=== PATIENT | male | born 1935 | race Caucasian/White ===

== ENCOUNTER 2017-07-30 18:46 | Emergency (ER) | payer MEDICARE ==
--- NOTE | 2017-07-30 20:34 | RAD ---
PORTABLE CHEST: 07/30/2017 PROVIDED CLINICAL HISTORY: Chest pain status post injury. COMPARISON: 04/20/2017 FINDINGS: The cardiac and mediastinal silhouette are unchanged in appearance. Median sternotomy changes and a left subclavian cardiac pacing device are again seen. There is no focal consolidation, pleural fluid , or pneumothorax. The bony thorax appears grossly intact, as visualized. IMPRESSION: No evidence for an acute cardiopulmonary process. POS: [facility]
== END 2017-07-30 19:54 | disposition home or self-care (01) ==
LOC: MADERS 18:46
DX: S22.32XA Fracture of one rib, left side, initial encounter for closed fracture (principal); E11.51 Type 2 diabetes mellitus with diabetic peripheral angiopathy without gangrene; E11.40 Type 2 diabetes mellitus with diabetic neuropathy, unspecified; I25.10 Atherosclerotic heart disease of native coronary artery without angina pectoris; I48.91 Unspecified atrial fibrillation; I10 Essential (primary) hypertension; Z85.46 Personal history of malignant neoplasm of prostate; Z79.899 Other long term (current) drug therapy; W01.198A Fall on same level from slipping, tripping and stumbling with subsequent striking against other object, initial encounter
CPT/HCPCS: 71045

== ENCOUNTER 2018-01-14 10:14 | Emergency (ER) | payer MEDICARE ==
[2018-01-14] MEDS ORDERED: HYDROcodone/Acetaminophen 5/325 mg Tablet ONE (10:57)
[2018-01-14] MEDS ORDERED: predniSONE 20 MG TAB ONE (10:58)
== END 2018-01-14 11:00 | disposition home or self-care (01) ==
LOC: MADERS 10:14
DX: M54.41 Lumbago with sciatica, right side (principal); I25.10 Atherosclerotic heart disease of native coronary artery without angina pectoris; I48.91 Unspecified atrial fibrillation; E11.9 Type 2 diabetes mellitus without complications; I10 Essential (primary) hypertension; Z79.899 Other long term (current) drug therapy
CPT/HCPCS: J7506

== ENCOUNTER 2018-04-06 16:47 | Inpatient (IN) | payer MEDICARE ==
[2018-04-06] MEDS ORDERED: Guaifenesin DM 100-10/5 ML UDCUP PO PRN (21:13)
[2018-04-06] MEDS ORDERED: Acetaminophen 325 MG TAB PO PRN (21:13)
[2018-04-06] MEDS ORDERED: Bisacodyl 5 MG TAB PO PRN (21:13)
[2018-04-06] MEDS ORDERED: Ondansetron ODT 4 MG TAB PO PRN (21:13)
[2018-04-07 05:33] VITALS: BMI 27.8
[2018-04-07] MEDS: cycloSPORINE 0.05% Ophthalmic Droperette EA EYE SCH ×2 (08:58→21:00)
[2018-04-07] MEDS ORDERED: Famotidine 20 MG TAB PO SCH ×2 (09:00)
[2018-04-07] MEDS ORDERED: Prevnar 13-Val Conj/PF 0.5 ML SYRINGE IM ONE (09:00)
[2018-04-07] MEDS: Scopolamine 1.5 mg/72 hour Patch TOP SCH (13:51)
[2018-04-07] MEDS ORDERED: Ondansetron PF 4 MG/2 ML Vial IVP PRN (14:15)
[2018-04-07] MEDS ORDERED: Acetaminophen 650 MG Suppository PR PRN (14:20)
--- NOTE | 2018-04-07 18:58 | HP ---
REASON FOR ADMISSION: Terminal ill care in [facility]. HISTORY OF PRESENT ILLNESS AND HOSPITAL COURSE: Mr. Alexandra is an 83-year-old male, recently admitted from [facility] in [place] for altered mental status. On further evaluation, the patient was found to have an acute hypoxemic respiratory failure due to pneumonia and flu. He was admitted subsequently for respiratory support, Tamiflu and IV antibiotics. The patient initially responded to the IV antibiotic and Tamiflu, but subsequently the patient was reported to have metabolic encephalopathy that was complicated with episodes of nonsustained VT. As per report, the patient did not really recover from his neurological status. He remained very altered, confused, and was minimally arousable. A couple of days prior to admission to [facility], the patient was put on Dobhoff feeds that he tolerated well. There was an initial plan of being to skilled unit for possible rehab, but upon further observation, the patient remains generally weak and lethargic/minimally arousable. Per report, after extensive discussion with the family member,her sister, Julia Nielsen who acts as the surrogate decision maker, the patient was made DNR and thus transferred to [facility] for terminal ill care. When admitted last night, the patient was more awake and alert. He knows that he is in [place] and he was able to verbalize to the staff regarding his sister Julia and his DNR status. The patient has unremarkable overnight stay. When evaluated this morning, staff reports that he has been very lethargic, very confused, and is unable to carry a good conversation. Also reported that the patient started complaining of pain and drooling more saliva. Most of the patient's oral medications were discontinued including the long-term medications and antithrombotic/anticoagulants. The patient was continued on Dobhoff feeding, feeding rate per Dietary's recommendations. When evaluated today, the patient is minimally arousable. He tries to answer my queries, but with incomprehensible speech. He opens his eyes spontaneously with verbal stimulus, talks some but he goes back to sleep easily. His vital signs are stable with continuous oxygen per nasal cannula. Patient could not contribute to his history. All other informations were taken from the hospital records. PAST MEDICAL HISTORY: Hypertension; coronary artery disease; atrial fibrillation; prostate CA, status post surgery; peripheral vascular disease; neuropathy; and pacemaker placement. PAST SURGICAL HISTORY: The patient has cataract bilaterally, prostatectomy, right digit amputation, cardiac ablation in the past, CABG x2, and valvular replacement. FAMILY HISTORY: Unknown. PSYCHIATRIC HISTORY: No psychiatric history recorded. SOCIAL HISTORY: The patient drinks daily. He lives by himself. There is unknown history of illicit drug use or tobacco use. ALLERGIES: THE PATIENT IS ALLERGIC TO AMBIEN AND PENICILLIN. CURRENT MEDICATIONS: 1. Carvedilol 25 mg p.o. b.i.d. 2. Atorvastatin 20 mg p.o. q.h.s. 3. Famotidine 20 mg p.o. b.i.d. 4. Guaifenesin 15 mL p.o. q.4 hours. 5. Calcitriol 0.25 mcg p.o. daily. 6. Cyanocobalamin 500 mcg p.o. b.i.d. 7. Fish oil 1000 mg p.o. daily. 8. Hydralazine 10 mg p.o. t.i.d. 9. Aspirin 81 mg p.o. daily. 10. Multivitamins one tablet p.o. daily. 11. NPH 30 units subcu q.12 hours. 12. Tamsulosin 0.4 mg p.o. daily. 13. Acetaminophen 650 mg p.o. q.4 hours p.r.n. He was also previously on; 1. Losartan 50 mg p.o. daily. 2. p.o. daily. 3. Furosemide 40 mg p.o. daily. 4. Gabapentin 600 mg p.o. daily. 5. Restasis 0.4 mL in both eyes. REVIEW OF SYSTEMS: Unobtainable secondary to the patient's current cognitive status. PHYSICAL EXAMINATION: VITAL SIGNS: Blood pressure 107/59; temperature 98.2; pulse 73; respirations 16 ; O2 sats 92% on room air, 98% earlier. Weight 188 pounds, height 5 feet and 9 inches. GENERAL: The patient is asleep, resting comfortably in bed, easily arousable with verbal stimulus. Generally weak looking, frail looking, thin elderly, not in acute distress. HEENT: Normocephalic, atraumatic. Pupils small and sluggishly reactive to light. Non icteric sclerae. Oral mucosa is dry with dry flaky lips. No oral mucosal lesions noted. NECK: Supple. No LAD. CHEST: Normal excursion. Nonlabored breathing. Pacemaker in place, left anterior chest. LUNGS: Diminished breath sounds, otherwise clear. No rales. No crackles. No rhonchi. CARDIAC: Regular rhythm, Normal S1 and S2. GI: Normoactive bowel sounds. Soft, flat, nontender, nondistended. No rebound or guarding. Negative CVA tenderness bilaterally. EXTREMITIES: No edema. No cyanosis. NEUROLOGIC: Lethargic, unable to carry conversation with spontaneous movements of all extremities. SKIN: Stage II sacral pressure ulcer and some excoriations of the left cheek of the buttocks, dry. No drainage. ASSESSMENT AND PLAN: 1. Acute hypoxemic respiratory failure secondary to influenza pneumonia. 2. Sepsis secondary to influenza. 3. Metabolic encephalopathy. 4. Left lung community-acquired pneumonia. 5.Dysphagia, status post Dobhoff placement for feedings. 6.Acute on chronic kidney disease. 7. History of hypertension; history of coronary artery disease; history of chronic atrial fibrillation, status post pacemaker placement. 8. History of prostate CA with obstructive symptoms, status post prostatectomy. 9. History of dyslipidemia. 10. Stage 2 sacral decubitus ulcer. The patient is admitted to [facility] for terminal ill care. We will discontinue all the patient's oral medications and supplement with IV alternatives. Continue supportive care/symptomatic management. We will start on fentanyl patch for pain control and p.r.n. sublingual short-acting morphine sulfate for breakthrough pain. O2 to keep O2 sats 94 and above. GI prophylaxis with IV PPI. Continue routine wound care, skin care. Repositioning every 2 hours per protocol. The patient's short-term prognosis is guarded, long-term prognosis is very poor. The patient's code status is DNAR as per outpatient DNR paper per chart. I also reviewed previous conversations of the rehabilitation caseworker and attendings in the hospital regarding the DNR status as per their conversation with the patient's sister. I tried contacting the sister today at telephone number available, , to confirm, but to no avail. Left voice message to call me back. I do not expect the patient to recover from this current condition, but in case this happens, plan is for possible skilled rehab as previously planned , if permits. Further recommendations depending on the hospital course. Job ID: [id number] ADIA
[2018-04-08] MEDS: cycloSPORINE 0.05% Ophthalmic Droperette EA EYE SCH ×2 (08:28→20:01)
[2018-04-08] MEDS: Pantoprazole 40 MG VIAL IVP SCH (08:28)
[2018-04-08] MEDS: Morphine 10 MG/0.5 ML ORAL SYRINGE SL PRN (19:53)
[2018-04-09] MEDS: Morphine 10 MG/0.5 ML ORAL SYRINGE SL PRN ×4 (00:43→10:18)
[2018-04-09] MEDS ORDERED: Morphine 10 MG/0.5 ML ORAL SYRINGE SL PRN (01:24)
[2018-04-09] MEDS: cycloSPORINE 0.05% Ophthalmic Droperette EA EYE SCH ×2 (10:07→21:11)
[2018-04-09] MEDS: Pantoprazole 40 MG VIAL IVP SCH (10:07)
[2018-04-10] MEDS: Morphine 10 MG/0.5 ML ORAL SYRINGE SL PRN ×5 (00:22→23:22)
[2018-04-10] MEDS: Pantoprazole 40 MG VIAL IVP SCH (08:42)
[2018-04-10] MEDS: cycloSPORINE 0.05% Ophthalmic Droperette EA EYE SCH ×2 (08:42→21:00)
[2018-04-10] MEDS: Scopolamine 1.5 mg/72 hour Patch TOP SCH (14:05)
[2018-04-10] MEDS ORDERED: Loperamide HCl 2 MG CAP PO PRN (22:21)
[2018-04-10] MEDS ORDERED: Promethazine HCl 25 MG SUPP PR PRN (22:21)
[2018-04-10] MEDS ORDERED: Haloperidol Lactate 5 MG/ML VIAL SLOW IVP PRN (22:21)
[2018-04-10] MEDS ORDERED: Scopolamine 1.5 mg/72 hour Patch TOP PRN ×2 (22:21)
[2018-04-10] MEDS ORDERED: Hyoscyamine Sulfate SL 0.125 mg Tablet SL PRN (22:21)
[2018-04-10] MEDS ORDERED: Zolpidem Tartrate 5 MG TAB PO PRN (22:21)
[2018-04-10] MEDS ORDERED: diphenhydrAMINE 50 MG/ML VIAL IVP PRN (22:21)
[2018-04-10] MEDS ORDERED: Ondansetron PF 4 MG/2 ML Vial IVP PRN (22:21)
[2018-04-10] MEDS ORDERED: Ondansetron ODT 4 MG TAB PO PRN (22:21)
[2018-04-10] MEDS ORDERED: Lorazepam 1 MG TAB PO PRN ×2 (22:21)
[2018-04-10] MEDS ORDERED: Acetaminophen 650 MG Suppository PR PRN (22:21)
[2018-04-10] MEDS ORDERED: Acetaminophen 325 MG TAB PO PRN (22:21)
[2018-04-10] MEDS ORDERED: Lorazepam 2 MG/ML VIAL SLOW IVP PRN ×2 (22:21)
[2018-04-10] MEDS ORDERED: Senokot 8.6 MG TAB PO PRN (22:21)
[2018-04-10] MEDS ORDERED: chlorproMAZINE HCl 50 MG/2 ML AMP IM PRN ×2 (22:21)
[2018-04-10] MEDS ORDERED: Morphine IR Tab 15 MG TAB PO PRN (22:21)
[2018-04-10] MEDS ORDERED: diphenhydrAMINE 25 MG CAP PO PRN (22:21)
[2018-04-10] MEDS ORDERED: Milk Of Magnesia 30 ML UDCUP PO PRN (22:21)
[2018-04-10] MEDS ORDERED: chlorproMAZINE HCl 25 MG in Sodium Chloride 0.9% 50 ML IVPB PRN (22:21)
[2018-04-10] MEDS ORDERED: Ibuprofen 400 MG TAB PO PRN (22:33)
[2018-04-10] MEDS ORDERED: Haloperidol 1 MG TAB PO PRN (22:34)
[2018-04-11] MEDS: Morphine 10 MG/0.5 ML ORAL SYRINGE SL PRN (05:08)
[2018-04-12] MEDS: Morphine 10 MG/0.5 ML ORAL SYRINGE SL PRN ×2 (17:49→22:24)
[2018-04-14 09:08] VITALS: TEMP 100.8
[2018-04-14] MEDS: Morphine 10 MG/0.5 ML ORAL SYRINGE SL PRN (10:35)
[2018-04-14 13:44] VITALS: BP 113/55
--- NOTE | 2018-04-15 13:06 | DIS ---
DATE OF ADMISSION: 04/06/2018 DATE OF DISCHARGE: 04/14/2018 DATE OF EXPIRATION: 04/14/2018. PRIMARY CAUSE OF : 1. Acute respiratory failure with hypoxia. 2. Probable Aspiration 3. Influenza pneumonia, community-acquired. 4. Sepsis secondary to influenza. 5. Metabolic encephalopathy. . 6. Dysphagia, status post Dobhoff placement for feeding 7. Malnutrition/ dehydration. 8. Acute on chronic kidney disease. 9. Stage II sacral decubitus ulcer. SECONDARY CAUSES: History of hypertension, history of coronary artery disease, history for chronic atrial fibrillation, status post pacemaker placement, history of prostate cancer with obstructive symptoms, status post prostatectomy, history of dyslipidemia. HISTORY OF THE PRESENT ILLNESS AND HOSPITAL COURSE: Mr. Alexandra was an 83-year- old male with significant multiple chronic medical conditions as mentioned above. He was recently admitted to [facility] in [place] for acute altered mental status. On further examination and evaluation , he was found to have an acute hypoxemic respiratory failure due to pneumonia and flu. He was admitted subsequently for respiratory support, Tamiflu and IV antibiotics. The patient initially responded to the above medical therapy, but he then developed an acute metabolic encephalopathy that was complicated with episodes of nonsustained VT. He initially did some recovery from his neurological status, but he remained very altered, confused and was minimally arousable. He then did not tolerate oral intake, thus Dobhoff feeding was placed. The initial plan was for skilled rehab; however, the patient's mental status did not improve completely, thus on further discussion by the hospitalist with patient's sister, Lena Machuca, who acts as the surrogate decision maker,the patient was made DNAR and the patient was transferred to [facility] for terminal ill care. When patient was admitted in the [facility], he was lethargic, very weak and could hardly converse. Prognosis was very poor. After discussing with the sister on the phone, his poor medical status, sister was in full agreement with comfort care only. In [facility], the patient received symptomatic management. All his oral medications were discontinued. Initially we continued the Dobhoff feeding but was eventually discontinued per sister's request, as continued feeding was considered to have more medical burdens than benefits to the the patient. It was also mentioned by the sister that based from patient's living will, patient does not desire to be placed on artificial feeding at the time that he is no longer in his right mind to decide for himself. The patient manifested constant pain and intermittent anxiousness and drooling. He then received fentanyl patch, Roxanol sublingual for pain and scopolamine patch. . Within the first 48-72 hour stay, patient then showed severe medical decline. was deemed inevitable. Patient was then transferred to in patient hospice under [facility] 04/10/2018. The patient on 02/11/19 . He was pronounced at [address] [facility] nurse.This patient's surrogate decision maker/sister, Ms. Lena Machuca was notified. Home arrived at 1605 hours and body was released to home of request at 1615 hours. Job ID: [id number] [id number]
== END 2018-04-14 16:15 | disposition expired | DRG 951 ==
LOC: MADMS 19:47
PROVIDERS: ADMIT Family Medicine; ATTEND Family Medicine
DX: Z51.5 Encounter for palliative care (principal); A41.89 Other specified sepsis; J11.00 Influenza due to unidentified influenza virus with unspecified type of pneumonia; J96.01 Acute respiratory failure with hypoxia; G93.41 Metabolic encephalopathy; I47.2 Ventricular tachycardia; Z66 Do not resuscitate; I12.9 Hypertensive chronic kidney disease with stage 1 through stage 4 chronic kidney disease, or unspecified chronic kidney disease; I25.10 Atherosclerotic heart disease of native coronary artery without angina pectoris; I73.9 Peripheral vascular disease, unspecified; G62.9 Polyneuropathy, unspecified; R13.10 Dysphagia, unspecified; I48.2 Chronic atrial fibrillation; N18.9 Chronic kidney disease, unspecified; E78.5 Hyperlipidemia, unspecified; E86.0 Dehydration; L89.152 Pressure ulcer of sacral region, stage 2; Z95.0 Presence of cardiac pacemaker; Z85.46 Personal history of malignant neoplasm of prostate; Z98.890 Other specified postprocedural states; Z98.41 Cataract extraction status, right eye; Z98.42 Cataract extraction status, left eye; Z90.79 Acquired absence of other genital organ(s); Z95.1 Presence of aortocoronary bypass graft; Z95.2 Presence of prosthetic heart valve; Z79.82 Long term (current) use of aspirin; Z79.899 Other long term (current) drug therapy
CPT/HCPCS: 36416; C9113